=== PATIENT | female | born 1935 | race Caucasian/White ===

== ENCOUNTER 2020-07-13 09:40 | Emergency (ER) | payer BC, MEDICARE, SELFPAY ==
[2020-07-13 09:49] VITALS: BP 179/94; PULSE 109; RESP 18; TEMP 36.8; O2SAT 97; BMI 22.6
[2020-07-13 09:50] VITALS: BP 179/94; PULSE 109; RESP 18; TEMP 36.8; O2SAT 97; BMI 22.5
--- NOTE | 2020-07-13 10:15 | HMH.EDUTC ---
[facility] [place] Clinical Impression: Sinusitis Qualifiers: Sinusitis location: unspecified location Chronicity: acute Recurrence: non-recurrent Qualified Code(s): J01.90 - Acute sinusitis, unspecified Disposition: Home, Self-Care Condition on Discharge: Good Instructions: Sinusitis, DI for Sinusitis Additional Instructions: Drink plenty of fluids. Take tylenol for pain or fever. Take the medications as directed. Follow up with your regular doctor. GO TO THE ER FOR ANY WORSENING SYMPTOMS MAKE SURE THAT YOU FOLLOW UP AND HAVE YOUR PT/INR RECHECKED SINCE YOU ARE ON COUMADIN (BLOOD THINNER) Prescriptions: predniSONE [Deltasone 10mg tablet] 10 mg PO BID 4 Days #8 tab Transmission Status: Received by [id number] Azithromycin [Z-Jatinder 250mg Tab*] 250 mg PO UD DOSE PK #6 tab Transmission Status: Received by [id number] Cetirizine HCl [Zyrtec] 10 mg PO DAILY #30 cap [facility]: [id number] Referrals: Jacek Toth MD [Primary Care Provider] - Forms: Work/School Release Time of Disposition: 10:20 Medical Decision Making - Medical Records Medical records reviewed: No: I reviewed the patient's medical records. - [place] Inquiry Pt receiving controlled substance: No Vital Signs: 07/13/20 09:49 07/13/20 09:50 07/13/20 10:23 Temperature 98.3 F 98.3 F 98.3 F Temperature Source Oral Oral Pulse Rate 109 H Pulse Rate [Left Radial] 109 H 109 H Respiratory Rate 18 18 18 Blood Pressure 179/94 H Blood Pressure [Left Arm] 179/94 H 179/94 H Blood Pressure Mean [Left Arm] 122 122 Blood Pressure Source [Left Arm] Automatic Cuff Automatic Cuff Blood Pressure Position [Left Arm] Sitting Sitting 02 Sat by Pulse Oximetry 97 97 Oxygen Delivery Method Room Air Room Air [facility] [place] - General Stated complaint: sinus headache,cough Time Seen by Provider: 07/13/20 10:15 Mode of Arrival: Ambulatory Source of Information: Patient Limitations: No Limitations Description of Symptoms (Recalled from Triage Doc. by RN): Pt reports sinus drainage and cough, states cough is productive at times. Pt denies fever, denies SOA. - History of Present Illness Provider Complaint: She reports that for the past 3 days she has had sinus congestion, scratchy throat and a cough. She denies any known contact with covid-19, but she does work at [employer]. She has not had a covid-19 vaccine yet. - Related Data Previous Rx's Medication Instructions Recorded Azithromycin [Z-Jatinder 250mg Tab*] 250 mg PO UD DOSE PK #6 tab 07/13/20 Cetirizine HCl [Zyrtec] 10 mg PO DAILY #30 cap 07/13/20 predniSONE [Deltasone 10mg tablet] 10 mg PO BID 4 Days #8 tab 07/13/20 Allergies Allergy/AdvReac Type Severity Reaction Status Date / Time No Known Allergies Allergy Verified 07/13/20 10:17 [facility] History - Hepatitis A Screen Attestation statement:: This patient has been screened for Hepatitis A risk factors. I have reviewed the patient's past medical history: Yes ROS Obtained: Yes All systems reviewed & no additional complaints - Constitutional Constitutional: Denies chills, Denies fever(s), Reports poor appetite, Reports malaise - Eyes Eyes: Denies eye discharge - ENT Ears, Nose, Mouth, and Throat: Reports as per HPI - Cardiovascular Cardiovascular: Denies chest pain - Respiratory Respiratory: Reports chest congestion, Reports cough, Denies stridor, Denies wheezing Physical Exam - General General appearance: alert, in no apparent distress - Head Head exam: atraumatic, normocephalic, normal inspection - Eye Eye exam: Present: normal appearance, PERRL, EOMI - ENT ENT exam: Present: mucous membranes moist, normal external ear exam - Expanded ENT Exam TM/Canal exam: Bilateral TM: erythema, bulging Nose exam: Present: sinus tenderness Mouth exam: Present: normal external inspection Teeth exam: Present: normal inspection Throat exam: Present
[2020-07-13 10:23] VITALS: BP 179/94; PULSE 109; RESP 18; TEMP 36.8; O2SAT 97
== END 2020-07-13 10:25 | disposition home or self-care (01) ==
PROVIDERS: Emergency Provider Nurse Practitioner Family; PCP Family Medicine
DX: Z20.822 Contact with and (suspected) exposure to COVID-19 (principal); J01.90 Acute sinusitis, unspecified
CPT/HCPCS: 99202; G0463; U0003

== ENCOUNTER → 2021-10-20 14:04 | Outpatient (CLI) | payer BC, MEDICARE, SELFPAY ==
--- NOTE | 2021-10-20 14:10 | XR_ITS ---
FINAL REPORT CLINICAL HISTORY: F/U FOR INFECTION, PAIN @ 4TH DIGIT W NUMBNESS & TINGLING FINDINGS: 3 views of the left foot were obtained. There is no acute fracture or dislocation. There are mild degenerative changes. There is bony erosion of the lateral distal aspect of the 4th proximal phalanx worrisome for osteomyelitis. Vascular calcifications are present. IMPRESSION: Bony erosion of the lateral distal aspect of the 4th proximal phalanx worrisome for osteomyelitis. Reviewed, Interpreted and Dictated by Yuan Queen III, MD Transcribed by Miki Pennington Authenticated and [facility]
[2021-10-20 14:51] LABS: Basophils # 0.1 K/mm3 (0-0.2); Basophils % 1.9 % (0.1-2.0); Eosinophils # 0.5 K/mm3 (0.0-0.4); Eosinophils % 7.6 % (0.1-12.0); Hematocrit 39.9 % (37.0-47.0); Hemoglobin 13.4 g/dL (12.2-16.2); Lymphocytes # 1.8 K/mm3 (0.7-4.5); Lymphocytes % 30.7 % (10-50); Mean Corpuscular HGB Conc 33.5 g/dL (31.8-35.4); Mean Corpuscular Hemoglobin 31.7 pg (27.0-31.2); Mean Corpuscular Volume 94.6 fl (81-99); Mean Platelet Volume 8.6 fl (7.4-10.4); Monocytes # 0.6 K/mm3 (0.1-1.0); Monocytes % 9.3 % (1.7-9.3); Neutrophils % 50.5 % (37.0-80.0); Platelet Count 283 K/mm3 (142-424); Red Blood Count 4.22 M/mm3 (4.20-5.40); Red Cell Distribution Width 13.6 % (11.5-17.5); White Blood Count 5.9 K/mm3 (4.8-10.8)
[2021-10-20 15:24] LABS: Erythrocyte Sedimentation Rate 52 mm/hr (0-30)
[2021-10-20 15:27] LABS: Alanine Aminotransferase 52 U/L (12-78); Albumin Level 4.1 g/dl (3.5-5.0); Albumin/Globulin Ratio 1.4 (1.1-1.8); Alkaline Phosphatase 239 U/L (38-126); Anion Gap 12.9 mEq/L (5-15); Aspartate Amino Transferase 46 U/L (14-36); Bilirubin,Total 0.5 mg/dl (0.2-1.3); Blood Urea Nitrogen 24 mg/dl (7-17); Calcium 9.6 mg/dl (8.4-10.2); Carbon Dioxide 28 mmol/L (22.0-30.0); Chloride 101 mmol/L (98-107); Estimated Glomerular Filt Rate 68 ml/min (>60); GFR (African American) 82 ML/MIN (>60); Glucose 104 mg/dl (74-100); Potassium 3.9 mmoL/L (3.5-5.1); Sodium 138 mmol/L (136-145); Total Protein,Serum 7.1 g/dl (6.3-8.2)
== END ==
PROVIDERS: PCP Family Medicine; Visit Provider Nurse Practitioner Family
DX: Z51.89 Encounter for other specified aftercare (principal); M79.672 Pain in left foot; L03.032 Cellulitis of left toe
CPT/HCPCS: 36415; 73630; 80053; 85025; 85651; 86140; 87070; 87186; 87205

== ENCOUNTER → 2021-10-28 12:57 | Outpatient (CLI) | payer BC, SELFPAY ==
--- NOTE | 2021-10-28 13:02 | US_ITS ---
FINAL REPORT CLINICAL HISTORY: WOUND LT 4TH TOE,HTN,HLD,CLAUDICATION/NUMBNESS BILATERAL,VARICOSE VEINS BILATERAL FINDINGS: ANKLE-BRACHIAL PRESSURE INDICES Pressure indices are as follows: RIGHT LOWER EXTREMITY: Ankle-brachial pressure index: 0.54 Comments: Normal LEFT LOWER EXTREMITY: Ankle-brachial pressure index: 1.1 Comments: Normal IMPRESSION: Moderate peripheral arterial vascular disease on the right, mild on the left. Reviewed, Interpreted and Dictated by Yuan Queen III, MD Transcribed by Elsa Torrez Authenticated and . [facility]
--- NOTE | 2021-10-28 14:02 | CT_ITS ---
FINAL REPORT CLINICAL HISTORY: osteomyelitis, numbness in left foot FINDINGS: CT LEFT FOOT WITHOUT CONTRAST Technique: Axial images through the left foot were performed by computed tomography. Sagittal and coronal reconstruction images were performed. This study was performed with techniques to keep radiation doses as low as reasonably achievable (ALARA). Individualized dose reduction techniques using automated exposure control or adjustment of mA and/or kV according to the patient's size were employed. No fracture is identified. No dislocation identified. There are mild degenerative changes. There are no bony erosions. There is mild vascular calcification. IMPRESSION: Mild degenerative change without bony erosions. If indicated, MRI would be more sensitive. Reviewed, Interpreted and Dictated by Yuan Queen III, MD Transcribed by Miki Pennington Authenticated and [facility]
== END ==
PROVIDERS: PCP Family Medicine; Referring Provider Podiatrist; Visit Provider Family Medicine
DX: I70.212 Atherosclerosis of native arteries of extremities with intermittent claudication, left leg (principal); L03.032 Cellulitis of left toe; M86.9 Osteomyelitis, unspecified
CPT/HCPCS: 73700; 93923

== ENCOUNTER → 2021-11-28 08:38 | Outpatient (CLI) | payer BC, SELFPAY ==
--- NOTE | 2021-11-28 09:05 | CT_ITS ---
FINAL REPORT CLINICAL HISTORY: CLAUDICATION,ABN ANKLE BRACHIAL INDEX FINDINGS: Post contrast axial imaging of the aorta and bilateral lower extremity was obtained and reviewed.This study was performed with techniques to keep radiation doses as low as reasonably achievable (ALARA). Individualized dose reduction techniques using automated exposure control or adjustment of mA and/or kV according to the patient''s size were employed. Vascular: There is no evidence of aortic aneurysm. There is no evidence of aortic stenosis. There is calcification at the origin of the celiac axis and there is likely mild stenosis of approximately 25%. There is calcification at the origin of the SMA with no significant stenosis. The inferior mesenteric artery is patent. There is at least 50% stenosis of the left renal artery. 2 small right renal arteries are present, both patent. The iliac arteries are unremarkable, without stenosis. The internal iliac arteries are patent. Right lower extremity: The right common femoral artery, deep femoral artery and superficial femoral artery are all patent, without stenosis. There is no stenosis of the proximal and mid popliteal artery. In the distal most popliteal artery, just proximal to or at the bifurcation, there is at least 50% stenosis. The proximal anterior tibial artery is patent. At the level of the mid tibia/fibula, there is a segment of anterior tibial artery which contains no contrast. More distally, it reconstitutes via collaterals. The posterior tibial and peroneal arteries are patent to the ankle. Left: The left common femoral artery, deep femoral artery and superficial femoral artery are all patent, without stenosis. There is no stenosis of the proximal and mid popliteal artery. The popliteal artery is occluded at the level of the knee joint. The anterior tibial and tibioperoneal trunk reconstitute via collaterals and are first seen at the level of the proximal tibia. There is a three-vessel runoff in the remainder of the calf to the ankle. Review of the remaining abdomen and pelvis demonstrates no evidence of mass or adenopathy. The liver is fatty infiltrated and mildly enlarged. There is a large amount of stool in the rectum. There is no fluid collection or acute inflammatory process. IMPRESSION: 1. No evidence of abdominal aortic aneurysm or dissection. 2. Mild celiac stenosis. Left renal artery stenosis. 3. Right distal popliteal artery stenosis. 4. Occluded left popliteal artery. 5. Short segment area of occlusion of the right anterior tibial artery. Authenticated and [facility]
[2021-11-28 09:45] LABS: Blood Urea Nitrogen 18 mg/dl (7-17); Estimated Glomerular Filt Rate 79 ml/min (>60); GFR (African American) 96 ML/MIN (>60)
== END ==
PROVIDERS: PCP Family Medicine; Visit Provider Family Medicine
DX: I70.213 Atherosclerosis of native arteries of extremities with intermittent claudication, bilateral legs (principal)
CPT/HCPCS: 36415; 75635; 82565; 84520; Q9967

== ENCOUNTER 2021-12-26 07:39 | Day surgery (SDC) | payer BC, SELFPAY ==
[2021-12-26] VITALS (15 sets, daily range): BP systolic 119–188; BP diastolic 38–106; PULSE 61–101; RESP 16–20; O2SAT 94–99; BMI 20.9
--- NOTE | 2021-12-26 07:08 | IR_ITS ---
APPROVED REPORT Patient Location: Outpatient PROCEDURES Bilateral selective renal angiogram catheter placed in the abdominal aorta Abdominal aortography Bilateral iliofemoral runoff INDICATION Samm claudication class IV left leg/foot, Peripheral artery disease, Renal artery stenosis, Suspected renovascular hypertension Informed consent was obtained prior to the procedure. COMPLICATIONS NONE Estimated Blood Loss: LESS THAN 10 ML TECHNIQUE 1% lidocaine used anesthetize right groin the right femoral artery was accessed via the Salinger technique and a 4 Faroese sheath was placed in the right femoral artery. A pigtail catheter was advanced to the abdominal aorta where abdominal aortography was performed. The catheter was repositioned and bilateral iliofemoral was performed. At the end of the procedure the apparatus was removed the patient was transferred to the postop putting in stable condition for sheath removal ANGIOGRAPHIC RESULTS Right renal artery singular normal Left renal artery singular and has an ostial 10 to 20% smooth stenosis Infrarenal abdominal aorta is widely patent Bilateral common internal and external iliac arteries are widely patent. Bilateral common femoral arteries are widely patent Bilateral profunda femoris arteries widely patent Bilateral superficial femoral arteries are widely patent Right popliteal artery is widely patent and gives rise to an anterior tibialis artery which has a proximal calcified 70% stenosis over the vessel small. The PT trunk has a 90% stenosis however there is normal flow through the stenosis. The vessel was also small. It gives rise to a posterior tibialis artery and the peroneal artery both of which are patent and supplies the right foot Left popliteal artery is occluded just at the pregeniculate level with collaterals then supplying an anterior tibialis artery. Immediately distal to the anterior tibialis artery the vessel was then occluded but early reconstitutes and then supplies the peroneal artery which then supplies the left foot. The left posterior tibialis artery is occluded IMPRESSION Peripheral artery disease as described above. Despite the severity of the specified stenoses there is still excellent flow down both legs. Both feet are warm and it is unlikely the left leg cellulitis is affected by the left-sided pregeniculate disease. Mild left renal artery stenosis which is nonflow limiting PLAN 1. Recommend medical management for the cellulitis which is unlikely to be ischemically mediated. Even if it were ischemically mediated I would not recommend any attempt to try to revascularize the infrageniculate vessels. These are small with poorly demarcations of the popliteal artery occlusion. I believe any form of percutaneous revascularization would almost certainly cause harm and jeopardize the entire below the knee limb 2. Risk factor modification 3. Xarelto 2.5 twice daily plus aspirin 81 mg daily 4. Avoidance of tobacco products 5. Supportive care 6. Physical therapy Electronically signed by : Aravind Vela MD 12/30/2021 12:27:30
[2021-12-26 07:51] LABS: Coronavirus 19, PCR Not Detected (NotDetected); Influenza A, PCR Not Detected (NotDetected); Influenza B, PCR Not Detected (NotDetected)
[2021-12-26 08:01] LABS: Basophils # 0.1 K/mm3 (0-0.2); Basophils % 1.4 % (0.1-2.0); Eosinophils # 0.2 K/mm3 (0.0-0.4); Hematocrit 39.7 % (37.0-47.0); Hemoglobin 12.4 g/dL (12.2-16.2); Lymphocytes # 1.4 K/mm3 (0.7-4.5); Lymphocytes % 26.9 % (10-50); Mean Corpuscular HGB Conc 31.2 g/dL (31.8-35.4); Mean Corpuscular Hemoglobin 31.3 pg (27.0-31.2); Mean Corpuscular Volume 100.3 fl (81-99); Mean Platelet Volume 8.7 fl (7.4-10.4); Monocytes # 0.4 K/mm3 (0.1-1.0); Monocytes % 7.7 % (1.7-9.3); Neutrophils # 3.1 K/mm3 (1.8-7.8); Platelet Count 235 K/mm3 (142-424); Red Blood Count 3.95 M/mm3 (4.20-5.40); Red Cell Distribution Width 13.6 % (11.5-17.5); White Blood Count 5.2 K/mm3 (4.8-10.8)
[2021-12-26 08:12] LABS: Anion Gap 7.4 mEq/L (5-15); Blood Urea Nitrogen 18 mg/dl (7-17); Calcium 9.4 mg/dl (8.4-10.2); Carbon Dioxide 31 mmol/L (22.0-30.0); Chloride 104 mmol/L (98-107); Creatinine Clearance Estimated 38 mL/min (50-200); Estimated Glomerular Filt Rate 79 ml/min (>60); GFR (African American) 96 ML/MIN (>60); Glucose 141 mg/dl (74-100); Potassium 4.4 mmoL/L (3.5-5.1); Sodium 138 mmol/L (136-145)
[2021-12-26 09:01] LABS: Prothrombin Time 11.3 seconds (10.1-12.5)
== END 2021-12-26 14:14 | disposition home or self-care (01) ==
PROVIDERS: Physician Assistant; PCP Family Medicine; Visit Provider Internal Medicine
DX: I70.1 Atherosclerosis of renal artery (principal); I70.223 Atherosclerosis of native arteries of extremities with rest pain, bilateral legs; L98.491 Non-pressure chronic ulcer of skin of other sites limited to breakdown of skin; M79.672 Pain in left foot; E03.9 Hypothyroidism, unspecified; I48.0 Paroxysmal atrial fibrillation; I70.92 Chronic total occlusion of artery of the extremities; Z20.822 Contact with and (suspected) exposure to COVID-19; I70.245 Atherosclerosis of native arteries of left leg with ulceration of other part of foot; L03.032 Cellulitis of left toe
CPT/HCPCS: 36252; 36415; 75716; 80048; 85025; 85610; 99152; C1725; C1769; C1894; C9803; J1644; Q9966; U0003; U0005